=== PATIENT | female | born 1985 | race Caucasian/White ===

== ENCOUNTER 2020-01-22 11:30 | Emergency (ER) | payer SELFPAY ==
[2020-01-22 12:11] LABS: Absolute Lymphocytes (CBC) 3.4 K/uL (0.7-4.9); Basophils % 0.4 % (0-1.3); Hematocrit 41.6 % (36.0-45.0); MPV 7.9 fL (7.6-11.3); RBC Red Blood Cell Count 5.01 M/uL (3.86-4.86)
[2020-01-22 12:28] LABS: Albumin 3.7 g/dL (3.4-5.0); Bilirubin Direct 0.1 mg/dL (0-0.2); Bilirubin Total 0.2 mg/dL (0.2-1.0); Potassium 3.7 mmol/L (3.5-5.1); Protein, Total 7.9 g/dL (6.4-8.2)
[2020-01-22 12:31] LABS: Urine Blood 1+ (NEG); Urine Glucose NEGATIVE (NEG); Urine Protein NEGATIVE (NEG); Urine Specific Gravity 1.025 (1.005-1.030); Urine pH 6.5 (5.0-7.0)
--- NOTE | 2020-01-22 13:42 | RAD REPORT ---
EXAM DESCRIPTION: CT - Abdomen Pelvis W Contrast - 01/22/2020 1:32 pm CLINICAL HISTORY: Abdominal pain COMPARISON: none. TECHNIQUE: Computed axial tomography of the abdomen pelvis was obtained. 100 cc Isovue-300 was admin istered intravenously. Oral contrast was not requested which limits evaluation of bowel. All CT scans are performed using dose optimization technique as appropriate and may include automated exposure control or mA/KV adjustment according to patient size. FINDINGS: The liver, spleen, pancreas, adrenal and kidneys appear unremarkable. There is no evidence of diverticulitis. Normal appendix Small umbilical hernia. 2 centimeter right ovarian cyst without significant free fluid IMPRESSION: 2 centimeter right ovarian cyst without significant free fluid
--- NOTE | 2020-01-22 14:11 | EDPHYS ---
Physician Documentation [facility] Name: Madelaine Aleman Age: 34 yrs Sex: Female : 1985 Arrival Date: 01/22/2020 Time: 11:33 Bed 24 Private MD: ED Physician Abisai Nettles HPI: 01/21 12:21 This 34 yrs old Female presents to ER via Ambulatory with complaints of Abdominal jmm Problem. 12:21 The patient presents with abdominal pain. Onset: The symptoms/episode began/occurred jmm gradually, 6 day(s) ago. The symptoms do not radiate. Associated signs and symptoms: Pertinent positives: diarrhea, vomiting. The symptoms are described as achy, sharp. Modifying factors: The symptoms are alleviated by nothing, the symptoms are aggravated by eating. This is a 34 year old female with a history of depression that presents to the ED with complaints of vomiting, diarrhea, dark stools beginning approx 6 days ago. Patient states she has had chronic abdominal pain over the past 7 years worsening 1 year ago. . 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 - Social history:: Smoking status: Patient reports the use of cigarette tobacco products, 4 cigarettes a day . ROS: 12:21 Constitutional: Negative for fever, chills, and weight loss, Cardiovascular: Negative jmm for chest pain, palpitations, and edema, Respiratory: Negative for shortness of breath, cough, wheezing, and pleuritic chest pain. 12:21 Abdomen/GI: Positive for abdominal pain, vomiting, diarrhea. 12:21 All other systems are negative. Exam: 12:21 Constitutional: This is a well developed, well nourished patient who is awake, alert, jmm and in no acute distress. Head/Face: atraumatic. Eyes: EOMI, no conjunctival erythema appreciated ENT: Moist Mucus Membranes Neck: Trachea midline, Supple Chest/axilla: Normal chest wall appearance and motion. Cardiovascular: Regular rate and rhythm. No edema appreciated Respiratory: Normal respirations, no respiratory distress appreciated 12:21 Back: Normal ROM Skin: General appearance color normal MS/ Extremity: Moves all extremities, no obvious deformities appreciated, no edema noted to the lower extremities Neuro: Awake and alert, normal gait Psych: Behavior is normal, Mood is normal, Patient is cooperative and pleasant 12:21 Abdomen/GI: Inspection: abdomen appears normal, Bowel sounds: normal, Palpation: soft, mild abdominal tenderness, in all quadrants. Vital Signs: 11:39 BP 126 / 80; Pulse 71; Resp 18 S; Temp 97.8(TE); Pulse Ox 97% on R/A; Weight 97.52 kg aa5 (R); Height 5 ft. 4 in. (162.56 cm) (R); Pain 5/10; 13:01 BP 117 / 71; Pulse 57; Resp 16; Temp 97.6(TE); Pulse Ox 98% ; mh5 11:39 Body Mass Index 36.90 (97.52 kg, 162.56 cm) aa5 MDM: 11:44 Patient medically screened. [facility] 14:08 Data reviewed: vital signs, nurses notes. Counseling: I had a detailed discussion with [facility] the patient and/or guardian regarding: the historical points, exam findings, and any diagnostic results supporting the discharge/admit diagnosis, radiology results, the need for outpatient follow up, to return to the emergency department if symptoms worsen or persist or if there are any questions or concerns that arise at home. ED course: CT negative. Patient advised to follow up with GI for further evaluation. Patient understood and agrees with the plan of care. Patient otherwise given strict return precautions. . 01/21 11:44 Order name: Basic Metabolic Panel [facility] 01/21 11:44 Order name: CBC with Diff [facility] 01/21 11:44 Order name: Creatinine for Radiology [facility] 01/21 11:44 Order name: Hepatic Function [facility] 01/21 11:44 Order name: Lipase [facility] 01/21 12:15 Order name: Urine Dipstick--Ancillary (enter results) 01/21 12:15 Order name: Urine --Ancillary (enter results) 01/21 12:20 Order name: CBC with Automated Diff; Complete Time: 12:44 [facility] 01/21 12:27 Order name: Creatinine (Radiology Only); Complete Time: 12:44 [facility] 01/21 12:29 Order name: Basic Metabolic Panel; Complete Time: 12:44 [facility] 01/21 12:29 Order name: Liver (Hepatic) Function; Complete Time: 12:44 [facility] 01/21 12:29 Order name: Lipase; Complete Time: 12:44 [facility] 01/21 12:32 Order name: Urine --Ancillary; Complete Time: 12:44 [facility] 01/21 12:32 Order name: Urine Dipstick-Ancillary; Complete Time: 12:44 [facility] 01/21 11:44 Order name: IV Saline Lock; Complete Time: 12:07 [facility] 01/21 11:44 Order name: Labs collected and sent; Complete Time: 12:07 [facility] 01/21 11:44 Order name: Urine Dipstick-Ancillary (obtain specimen); Complete Time: 12:07 [facility] 01/21 13:12 Order name: CT Abd/Pelvis - IV Contrast Only [facility] 01/21 13:48 Order name: CT; Complete Time: 14:01 [facility] Administered Medications: No medications were administered Disposition: 16:34 Co-signature as Attending Physician, Abisai Nettles MD I agree with the assessment and [facility] plan of care. Disposition: 01/22/20 14:10 Discharged to Home. Impression: Abdominal and pelvic pain, Other and unspecified ovarian cysts. - Condition is Stable. - Discharge Instructions: Abdominal Pain, Adult, Pelvic Pain, Female. - Prescriptions for Bentyl 20 mg Oral Tablet - take 2 tablet by ORAL route every 6 hours As needed; 40 tablet. Zofran 4 mg Oral Tablet - take 1 tablet by ORAL route every 12 hours As needed; 20 tablet. Pepcid 20 mg Oral Tablet - take 1 tablet by ORAL route once daily; 20 tablet. - Medication Reconciliation Form, Thank You Letter, Antibiotic Education, Prescription Opioid Use form. - Follow up: Leila Gracia MD; When: 2 - 3 days; Reason: Recheck today's complaints, Continuance of care, Re-evaluation by your physician. Signatures: Dispatcher [employer] Abisai Anthony MD MD cha Mickail, Joel, PA PA jmm Calderon, Audri RN RN aa5 Zuly Méndez RN RN ls4 Corrections: (The following items were deleted from the chart) 14:32 14:10 01/22/2020 14:10 Discharged to Home. Impression: Abdominal and pelvic pain; Other ls4 and unspecified ovarian cysts. Condition is Stable. Forms are Medication Reconciliation Form, Thank You Letter, Antibiotic Education, Prescription Opioid Use. Follow up: Leila Gracia; When: 2 - 3 days; Reason: Recheck today's complaints, Continuance of care, Re-evaluation by your physician. pérez
--- NOTE | 2020-01-22 14:11 | ER ---
Nurse's Notes [facility] Name: Madelaine Aleman Age: 34 yrs Sex: Female : 1985 Arrival Date: 01/22/2020 Time: 11:33 Bed 24 Private MD: Diagnosis: Abdominal and pelvic pain;Other and unspecified ovarian cysts Presentation: 01/21 11:39 Chief complaint: Patient states: "I had stomach ulcers when I was in college and I aa5 think it's back because I am having pain and feeling bloated". pt c/o pain to epigastric area. Pt reports nausea/vomiting/diarrhea. Pt states "It's been going on since Saturday and the first day I had blood in the stool but not anymore". Coronavirus screen: The patient has NOT traveled to a country currently being monitored by the CDC within the last 14 days. Ebola Screen: Patient negative for fever greater than or equal to 101.5 degrees Fahrenheit, and additional compatible Ebola Virus Disease symptoms. Initial Sepsis Screen: Does the patient meet any 2 criteria? No. Patient's initial sepsis screen is negative. Does the patient have a suspected source of infection? No. Patient's initial sepsis screen is negative. Risk Assessment: Do you want to hurt yourself or someone else? Patient reports no desire to harm self or others. 11:39 Method Of Arrival: Ambulatory aa5 11:39 Acuity: CARLI 3 aa5 12:23 Onset of symptoms is unknown. vc Triage Assessment: 12:22 General: Appears in no apparent distress. comfortable, Behavior is calm, cooperative, vc appropriate for age. Pain: Complains of pain in epigastric area, right upper quadrant and left upper quadrant. GI: Reports upper abdominal pain, intolerance of food, Pain is 5 out of 10 on a pain scale. 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 - Social history:: Smoking status: Patient reports the use of cigarette tobacco products, 4 cigarettes a day . Screenin:22 Abuse screen: Denies threats or abuse. Nutritional screening: No deficits noted. vc Tuberculosis screening: No symptoms or risk factors identified. Fall Risk None identified. Assessment: 12:23 GI: Bowel sounds present X 4 quads. Abd is soft X 4 quads Abdomen is tender to vc palpation. 12:23 General: Appears in no apparent distress. uncomfortable, Behavior is calm, cooperative, vc appropriate for age. Pain: Complains of pain in left upper quadrant and right upper quadrant and epigastric area. Neuro: Level of Consciousness is awake, alert, obeys commands, Oriented to person, place, time, situation, Appropriate for age. Cardiovascular: Capillary refill < 3 seconds Patient's skin is warm and dry. Respiratory: Respiratory effort is even, unlabored, Respiratory pattern is regular, symmetrical. : No signs and/or symptoms were reported regarding the genitourinary system. EENT: No signs and/or symptoms were reported regarding the EENT system. Derm: Skin is intact, is healthy with good turgor, Skin temperature is warm. Musculoskeletal: Circulation, motion, and sensation intact. Capillary refill < 3 seconds, Range of motion: intact in all extremities. 13:00 Reassessment: Patient and/or family updated on plan of care and expected duration. Pain vc level reassessed. Patient is alert, oriented x 3, equal unlabored respirations, skin warm/dry/pink. 14:00 Reassessment: Patient and/or family updated on plan of care and expected duration. Pain vc level reassessed. Patient is alert, oriented x 3, equal unlabored respirations, skin warm/dry/pink. Patient states feeling better. Patient states symptoms have improved. Vital Signs: 11:39 BP 126 / 80; Pulse 71; Resp 18 S; Temp 97.8(TE); Pulse Ox 97% on R/A; Weight 97.52 kg aa5 (R); Height 5 ft. 4 in. (162.56 cm) (R); Pain 5/10; 13:01 BP 117 / 71; Pulse 57; Resp 16; Temp 97.6(TE); Pulse Ox 98% ; mh5 11:39 Body Mass Index 36.90 (97.52 kg, 162.56 cm) aa5 ED Course: 11:33 Patient arrived in ED. ag5 11:38 Arm band placed on. aa5 11:41 Triage completed. aa5 11:43 Elvis Nair PA is PHCP. [facility] 11:43 Abisai Nettles MD is Attending Physician. [facility] 11:48 Corine Humphrey, RN is Primary Nurse. vc 12:24 Patient has correct armband on for positive identification. Placed in gown. Call light vc in reach. 13:02 Bed in low position. Side rails up X 1. Adult w/ patient. Warm blanket given. Pulse ox mh5 on. NIBP on. 14:09 Leila Gracia MD is Referral Physician. [facility] 14:30 No provider procedures requiring assistance completed. IV discontinued, intact, vc bleeding controlled, No redness/swelling at site. Pressure dressing applied. Administered Medications: No medications were administered Outcome: 14:10 Discharge ordered by . [facility] 14:30 Discharged to home ambulatory. vc 14:30 Condition: good 14:30 Discharge instructions given to patient, family, Instructed on discharge instructions, follow up and referral plans. Demonstrated understanding of instructions, follow-up care. 14:32 Patient left the ED. ls4 Signatures: Elvis Nair PA PA Malissa Potter, RN RN 5 Peg Mckeon 5 Zuly Méndez, RN RN 4 Modesta Goode [facility] Corine Humphrey, RN RN
== END 2020-01-22 14:32 | disposition home or self-care (01) ==
LOC: ER 11:30
DX: N83.201 Unspecified ovarian cyst, right side (principal); R10.2 Pelvic and perineal pain; F32.9 Major depressive disorder, single episode, unspecified; F17.210 Nicotine dependence, cigarettes, uncomplicated
CPT/HCPCS: 36415; 74177; 80048; 80076; 81003; 81025; 83690; 85025; 99283; Q9967